=== PATIENT | male | born 1990 | race Caucasian/White ===

== ENCOUNTER 2021-06-25 10:05 | Outpatient (CLI) | payer OTHER, SELFPAY ==
--- NOTE | 2021-06-25 10:10 | EST_ITS ---
Patient Info Name: Oscar Hope Age: 30 years : 1990 Gender: Male Ht: 75 in Wt: 340 lbs BSA: 2.92 m2 Exam Date: 06/25/2021 10:21 AM Exam Location: [facility] Stress Patient Status: Outpatient Admit Date: 06/25/2021 Staff Ordering Physician: Cailin Juarez MD Attending Provider: Cailin Juarez MD Exercise Technologist: Dagmar Ricrado RD Exercise Physician: Willis Ortiz DO Exam Type: CA stress test treadmill Study Info Indications Z02.1 - ENCOUNTER FOR PRE-EMPLOYMENT EXAMINATION A treadmill exercise stress test was performed. Summary 1. 1. Negative Arnold exercise stress test for ischemic ST changes by ECG criteria. 2. 2. Reduced functional capacity, achieving 8 METs of workload, due in part to hypertensive response to exercise. 3. 3. Baseline hypertension with hypertensive response to exercise. 4. 4. Appropriate HR response to exercise. 5. 5. Appropriate HR recovery at 1 minute post exercise. 6. 6. No imaging with stress testing. 7. 7. Patient informed of the above results. Protocol: Arnold Stress ECG Details Stage: REST Duration (min): 6 min : 12 sec Speed (mph): 0.0 Grade (%): 0 HR (bpm): 76 SBP (mmHg): 157 DBP (mmHg): 89 METS: --- Stage: REST Duration (min): 10 min : 2 sec Speed (mph): 0.0 Grade (%): 0 HR (bpm): --- SBP (mmHg): 157 DBP (mmHg): 89 METS: --- Stage: STAGE 1 Duration (min): 1 min : 0 sec Speed (mph): 1.7 Grade (%): 10 HR (bpm): 118 SBP (mmHg): 157 DBP (mmHg): 89 METS: --- Stage: STAGE 1 Duration (min): 2 min : 0 sec Speed (mph): 1.7 Grade (%): 10 HR (bpm): 126 SBP (mmHg): 157 DBP (mmHg): 89 METS: --- Stage: STAGE 1 Duration (min): 3 min : 0 sec Speed (mph): 1.7 Grade (%): 10 HR (bpm): 135 SBP (mmHg): 236 DBP (mmHg): 56 METS: --- Stage: STAGE 2 Duration (min): 1 min : 0 sec Speed (mph): 2.5 Grade (%): 12 HR (bpm): 144 SBP (mmHg): 236 DBP (mmHg): 56 METS: --- Stage: STAGE 2 Duration (min): 2 min : 0 sec Speed (mph): 2.5 Grade (%): 12 HR (bpm): 152 SBP (mmHg): 241 DBP (mmHg): 55 METS: --- Stage: STAGE 2 Duration (min): 3 min : 0 sec Speed (mph): 2.5 Grade (%): 12 HR (bpm): 160 SBP (mmHg): 235 DBP (mmHg): 62 METS: --- Stage: STAGE 3 Duration (min): 0 min : 50 sec Speed (mph): 3.4 Grade (%): 14 HR (bpm): --- SBP (mmHg): 252 DBP (mmHg): 85 METS: --- Stage: RECOVERY Duration (min): 0 min : 10 sec Speed (mph): 1.5 Grade (%): 0 HR (bpm): 143 SBP (mmHg): 252 DBP (mmHg): 85 METS: --- Stage: RECOVERY Duration (min): 1 min : 9 sec Speed (mph): 0.0 Grade (%): 0 HR (bpm): 147 SBP (mmHg): 252 DBP (mmHg): 85 METS: --- Stage: RECOVERY Duration (min): 2 min : 9 sec Speed (mph): 0.0 Grade (%): 0 HR (bpm): 124 SBP (mmH
== END 2021-06-25 10:06 | disposition home or self-care (01) ==
LOC: ANHCARD 10:06
PROVIDERS: PCP Family Medicine; Visit Provider Family Medicine
DX: E66.9 Obesity, unspecified (principal); I10 Essential (primary) hypertension; Z68.41 Body mass index [BMI] 40.0-44.9, adult; Z02.1 Encounter for pre-employment examination
CPT/HCPCS: 93017

== ENCOUNTER 2022-09-30 09:59 | Outpatient (CLI) | payer OTHER, SELFPAY ==
[2022-09-30 10:26] LABS: Hematocrit 44.7 % (42.0-52.0); Hemoglobin 14.2 g/dL (14.0-18.0); Mean Corpuscular HGB Conc 31.8 g/dl (32-36); Mean Corpuscular Hemoglobin 26.9 pg (26-34); Mean Corpuscular Volume 84.7 fl (80-100); Mean Platelet Volume 10.7 fl (7.4-10.4); Platelet Count Result 231 k/mm3 (150-375); Red Blood Count 5.28 M/mm3 (4.6-6.20); Red Cell Distribution Width 17.9 % (11.5-14.5); White Blood Count 13.9 K/mm3 (4.5-10.0)
[2022-09-30 10:39] LABS: Alanine Aminotransferase 484 U/L (6-50); Albumin Level 3.6 g/dL (3.5-5.1); Alkaline Phosphatase 729 U/L (38-126); Anion Gap 9 mmol/L (8-16); Aspartate Amino Transferase 625 U/L (17-59); Bilirubin,Total 6.9 mg/dL (0.2-1.3); Blood Urea Nitrogen 13 mg/dL (9-20); Calcium 8.8 mg/dL (8.4-10.2); Carbon Dioxide 26 mmol/L (22-30); Chloride 99 mmol/L (98-107); Estimated Glomerular Filt Rate > 60; Glucose 103 mg/dL (65-110); Potassium 5.3 mmol/L (3.4-5.0); Sodium 134 mmol/L (137-145)
[2022-09-30 10:44] LABS: Atypical Lymphocytes Present; Band Neutrophils Percent 4 % (0-6); Eosinophils Absolute Manual 0.13 K/mm3 (0.02-0.5); Eosinophils Percent Manual 1 % (0-4); Lymphocytes Absolute Manual 7.36 K/mm3 (1.1-4.5); Metamyelocytes Percent 1 %; Monocytes Absolute Manual 3.33 K/mm3 (0.1-0.90); Monocytes Percent Manual 24 % (3-9); Neutrophils Absolute Manual 2.78 K/mm3 (1.3-6.7); Neutrophils Percent Manual 16 % (46-73); Platelet Estimate Adequate (Adequate); Promyelocytes Percent 1 %; Schistocytes None Seen (NORMAL); Total Cells Counted 100
[2022-09-30 10:45] LABS: Anisocytosis 1+ (NORMAL)
== END 2022-09-30 10:00 | disposition home or self-care (01) ==
LOC: ANHLAB 10:01
PROVIDERS: PCP Family Medicine; Visit Provider Nurse Practitioner
DX: B27.90 Infectious mononucleosis, unspecified without complication (principal); R17 Unspecified jaundice
CPT/HCPCS: 36415; 80053; 85025

== ENCOUNTER 2022-09-30 11:49 | Inpatient (IN) | payer OTHER, SELFPAY ==
[2022-09-30] VITALS (7 sets, daily range): BP systolic 115–172; BP diastolic 71–99; PULSE 110–135; RESP 20–27; TEMP 35.8–36.7; O2SAT 96–98; BMI 44.9
--- NOTE | ~2022-09-30 | CT_ITS ---
EXAMINATION: CT abdomen pelvis w con DATE: 09/30/2022 14:59 INDICATION: Hyperbilirubinemia. TECHNIQUE: Computed tomography (CT) of the abdomen and pelvis was performed with 100 cc Omnipaque 350 intravenous contrast. The dose-length product was 1728.62 mGy-cm. Automated exposure control and ite rative reconstruction technique were employed. COMPARISON: None. FINDINGS: Lung bases are unremarkable. Heart size normal. No significant pleural or pericardial effus ion. Small fat-containing umbilical hernia. Nonobstructive bowel gas pattern. No free air or free flu id. Gallbladder is present. There is splenomegaly. Fatty infiltration of the liver with hepatomegaly. The pancreas, adrenal glands and kidneys are unremarkable. No abnormal pelvic masses or fluid collec tions. No acute osseous abnormality. IMPRESSION: 1. Hepatosplenomegaly. 2: Hepatic steatosis. Reviewed, dictated and finalized at location [facility]
--- NOTE | 2022-09-30 13:46 | ECG_ITS ---
Measurements Intervals [place] Rate: 133 P: 44 [place]: 148 QRS: 8 QRSD: 98 T: 30 QT: 288 QTc: 430 Interpretive Statements SINUS TACHYCARDIA OTHERWISE NORMAL ECG NO PREVIOUS ECG AVAILABLE FOR COMPARISON Electronically Signed On 10-01-2022 13:34:01 GLUE SPRAYER by Ady Blood M.D.
[2022-09-30 13:59] LABS: Hematocrit 45.8 % (42.0-52.0); Hemoglobin 14.3 g/dL (14.0-18.0); Mean Corpuscular HGB Conc 31.2 g/dl (32-36); Mean Corpuscular Volume 86.4 fl (80-100); Mean Platelet Volume 10.6 fl (7.4-10.4); Platelet Count Result 233 k/mm3 (150-375); Red Cell Distribution Width 17.9 % (11.5-14.5); White Blood Count 14.1 K/mm3 (4.5-10.0)
[2022-09-30 14:17] LABS: Alanine Aminotransferase 472 U/L (6-50); Albumin Level 3.6 g/dL (3.5-5.1); Alkaline Phosphatase 716 U/L (38-126); Anion Gap 9 mmol/L (8-16); Aspartate Amino Transferase 601 U/L (17-59); Bilirubin,Total 6.5 mg/dL (0.2-1.3); Blood Urea Nitrogen 15 mg/dL (9-20); Calcium 8.6 mg/dL (8.4-10.2); Carbon Dioxide 26 mmol/L (22-30); Chloride 101 mmol/L (98-107); Estimated CRCL calculation 130 ml/min; Estimated Glomerular Filt Rate > 60; Glucose 123 mg/dL (65-110); Lipase 228 U/L (23-300); Potassium 4.7 mmol/L (3.4-5.0); Sodium 136 mmol/L (137-145)
[2022-09-30 14:19] LABS: Band Neutrophils Percent 3 % (0-6); Eosinophils Absolute Manual 0.28 K/mm3 (0.02-0.5); Eosinophils Percent Manual 2 % (0-4); Lymphocytes Absolute Manual 3.24 K/mm3 (1.1-4.5); Monocytes Absolute Manual 1.83 K/mm3 (0.1-0.90); Monocytes Percent Manual 13 % (3-9); Neutrophils Absolute Manual 8.74 K/mm3 (1.3-6.7); Neutrophils Percent Manual 59 % (46-73); Platelet Estimate Adequate (Adequate); Total Cells Counted 100
[2022-09-30 14:20] LABS: Anisocytosis 1+ (NORMAL); Poikilocytosis 1+ (NORMAL); Schistocytes None Seen (NORMAL)
[2022-09-30 14:53] LABS: Add Urine Microscopic? YES; Appearance Urine Slightly Cloudy (Clear); Bilirubin Urine 3+ (Negative); Blood Urine Negative (Negative); Color Urine Orange (Yellow); Glucose Urine UA Negative (Negative); Ketones Urine Trace mg/dL (Negative); Leukocyte Esterase Ur Negative LEU/UL (Negative); Nitrate Urine Negative (Negative); Protein Urine 1+ mg/dL (Negative); Specific Grav Ur 1.025 (1.001-1.035); pH Urine 5.5 (5.0-9.0)
[2022-09-30] MEDS: SODIUM CHLORIDE 0.9% IV 1,000 ML 999 ML IV CONT (15:01)
[2022-09-30 15:03] LABS: Mucus Urine Few /lpf; RBC Urine 0-2 /hpf (0-2); Squamous Epithelial Cell Urine Rare /hpf (Few)
--- NOTE | 2022-09-30 15:34 | ED.GENADULT ---
HPI - General Adult General Chief complaint: Recheck/Abnormal Lab/Rx Stated complaint: sent by pcp for fluids Time Seen by Provider: 09/30/22 14:16 History of Present Illness HPI narrative: Patient is a 31-year-old male who presents ER with abnormal lab work. Patient began having a fever 2 weeks ago. He thought was a GI illness. He ended up seeing a practitioner at an urgent care who prescribed him a Z-Chalino. He took 3 days but was not feeling any better. He is having no nausea or vomiting or diarrhea. Patient went to his PCPs office today and was diagnosed with mononucleosis. He has significantly elevated transaminases and was transferred to the ER for further evaluation. Related Data Allergies Allergy/AdvReac Type Severity Reaction Status Date / Time No Known Allergies Allergy Verified 09/30/22 08:56 Review of Systems Review of Systems: All systems reviewed & are unremarkable except as noted in HPI and below Constitutional: Constitutional: Reports chills, Reports fatigue and Reports fever(s) ENT: Denies nasal congestion and Denies sore throat Cardiovascular: Cardiovascular: Denies chest pain, Denies rapid heart rate and Denies radiating jaw, neck or arm pain Respiratory: Respiratory: Denies cough and Denies dyspnea Gastrointestinal: Gastrointestinal: Denies abdominal pain, Denies diarrhea, Denies nausea and Denies vomiting PMF Past Medical History Medical History Other specified congenital malformations of skin Family History Family History Mother Family history of gastrointestinal disorder Other Hypertension Social History Social History (Updated 09/30/22 @ 18:47 by Chelsy Ruiz PA-C) Social History: Surrogate medical decision maker: Katherin Hope, mother. Code status: Full code. Smoking status: Never smoker Alcohol intake: never Substance use type: does not use Lack of Transportation: No Lack of Food: Never True Current Housing: I Have Housing Concerned About Future Housing: No Difficulty Paying Gas/Electric Bills: No Difficulty Paying for Meds: No Currently Unemployed: No Education: Decline to Answer Difficulty w/ Childcare or Family Care: No Additional living arrangements comments: Lives alone in [place]. Has 2 dogs, Occ[place] Cordero and a black lab. 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 Spiritual care concerns: No Exam Narrative: GENERAL: Ill-appearing, morbidly obese, and in no acute distress. HEAD: Normocephalic, atraumatic. EYES: PERRL and EOMI. scleral icterus noted. ENT: Mucous membranes moist. CHEST: Clear to auscultation. No respiratory distress. HEART: Tachycardic regular. Normal peripheral pulses. ABDOMEN: Soft, nontender, nondistended. EXTREMITIES: Normal range of motion. No edema. SKIN: Warm, dry, jaundice, no rash. NEURO: No focal deficits. Alert and oriented x3. PSYCH: Normal mood and affect. Course Course Emergency Course: Patient resting comfortably. Informed of results hydrated. Admit to the hospital service for further evaluation of his hepatitis. GI will be consulted. Vital Signs Vital signs: Vital Signs Temperature 98.1 F 09/30/22 13:43 Pulse Rate 130 H 09/30/22 13:43 Respiratory Rate 09/30/22 13:43 Blood Pressure 138/97 H 09/30/22 13:43 Pulse Oximetry 97 09/30/22 13:43 Oxygen Delivery Room Air 09/30/22 13:43 Temperature 97.7 F 09/30/22 18:01 Pulse Rate 122 H 09/30/22 18:01 Respiratory Rate 09/30/22 18:01 Blood Pressure 172/99 H 09/30/22 18:01 Pulse Oximetry 98 09/30/22 18:01 Oxygen Delivery Room Air 09/30/22 13:43 Medical Decision Making Vital Signs Vital Signs: Vital Signs Temperature 98.1 F 09/30/22 13:43 Pulse Rate 130 H 09/30/22 13:43 Respiratory Rate 09/30/22 13:43 Blood Pressure 138/97 H 09/30/22 13:43
[2022-09-30] MEDS: LACTATED RINGERS 1,000 ML 125 ML IV CONT (16:34)
[2022-09-30 16:48] LABS: Influenza A QL RT-PCR Negative (Negative); Influenza B QL RT-PCR Negative (Negative); SARS-CoV-2 RNA PCR Negative
--- NOTE | 2022-09-30 18:30 | PM.IMHP ---
H&P: HPI History of Present Illness Date/Time: 09/30/22 18:30 Chief Complaint: Fever and elevated LFTs. Narrative: This is a pleasant 31-year-old male with hypertension and GERD who presented to the emergency department at the instruction of his primary care provider for further evaluation of fever and elevated LFTs. Patient provides the following history. He has not felt well for a couple of weeks with generalized fatigue, lethargy, and intermittent fever. He was taking Tylenol as needed for his symptoms and he seemed to improve for a period of time however last Thursday he once again started to feel worse, developing a temperature up to 103?. He had a virtual visit and was prescribed a Z-Chalino as he reported having a mild, nonproductive cough. The antibiotic did not help whatsoever. He was seen at a local urgent care on Thursday where he tells me they did not do much except talked to him about his blood pressure running high. This morning he awoke with a rash on his arms and chest and luckily he was able to get in to see his doctor. Several lab tests were done and he came back positive for mononucleosis and he was instructed to go to the ER as his LFTs were quite elevated. He lives alone and denies sick contacts and recent travel. He is surprised that he would of contracted mononucleosis as he is very diligent about washing his hands or using hand neonatologist since the beginning of . Appetite has been okay and he denies nausea, vomiting, and diarrhea. He had a low-grade fever on arrival to the emergency department. Heart rate was 140 on arrival but has not improved with IV fluid hydration. Labs were significant for a WBC of 14.1, sodium 136, total bilirubin 6.5, AST 61, ALT 472, alkaline phosphatase 716, lipase 228. Acetaminophen level was undetectable. Hepatitis panel is negative. A CT of the abdomen pelvis showed hepatic steatosis and hepatosplenomegaly. He is being admitted in this setting for further treatment, evaluation, and GI consultation. Review of Systems Review of Systems: 12 systems were reviewed. Weight has remained stable. No headache or neck ache. He has perhaps some mild sore throat though he thinks that is related to his GERD and this is not necessarily new symptom for him. He denies chest pain shortness a breath. No sensations of racing heart at this time. No syncope or near syncope. Appetite has been okay. Urine has been a bit darker. Stool is light brown. No acholic stools. He has not noticed any significant swollen lymph nodes. Except as documented, all other systems were reviewed and are negative. [facility] Past Medical History Medical History (Updated 09/30/22 @ 21:17 by Chelsy Ruiz PA-C) Gastroesophageal reflux disease Hypertension Surgical History Surgical History (Updated 09/30/22 @ 21:16 by Chelsy Ruiz PA-C) No history of previous surgery Family History Family History Mother Family history of gastrointestinal disorder Other Hypertension Social History Social History Social History: Surrogate medical decision maker: Katherin Hope, mother. Code status: Full code. Smoking status: Never smoker Alcohol intake: never Substance use type: does not use Lack of Transportation: No Lack of Food: Never True Current Housing: I Have Housing Concerned About Future Housing: No Difficulty Paying Gas/Electric Bills: No Difficulty Paying for Meds: No Currently Unemployed: No Education: Decline to Answer Difficulty w/ Childcare or Family Care: No Additional living arrangements comments: Lives alone in [place]. Has 2 dogs, Lao Cordero and a black lab. 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 Spiritual care concerns: No Meds Home Medications and Allergies Home Medications Medication Instructions Recorded Confirmed Type
--- NOTE | 2022-09-30 18:42 | ADMGEN ---
This patient, Terrance Hope, was admitted to 3 Med Surg Room 321-02 at 1735. Patient/family oriented to hospital policies and general routines including ID bracelet, bed and alarms, visiting hours, pain management, procedures, bathroom and other care routines, personal items, smoking policy, room service/diet, and visiting hours. Information on how to activate the Rapid Response Team has been discussed. Patient/Family are encouraged to report perceived risks to care and to ask questions if they do not understand what they are told or what they should do.
[2022-09-30 19:58] LABS: Acetaminophen < 10 ug/mL (10-30)
[2022-09-30 20:03] LABS: INR 1.1; Prothrombin Time 13.9 Seconds (11.1-14.7)
[2022-09-30 20:04] LABS: Partial Thromboplastin Time 32.3 SECONDS (22.3-36.8)
[2022-09-30 20:37] LABS: Hepatitis B Surface Antigen Negative (Negative)
[2022-09-30 20:42] LABS: HAV RESULT Negative (Negative); Hepatitis B Core IgM Result Negative (Negative)
[2022-09-30 20:54] LABS: Hepatitis C Virus Antibody Negative (Negative)
[2022-09-30] MEDS: diphenhydrAMINE HCl CAP 25 MG CAPSULE PO (22:14)
[2022-10-01] VITALS (7 sets, daily range): BP systolic 136–154; BP diastolic 78–93; PULSE 112–118; RESP 18–22; TEMP 35.9–37.2; O2SAT 94–97
[2022-10-01] MEDS: LACTATED RINGERS 1,000 ML 125 ML IV CONT ×2 (00:55→17:47)
[2022-10-01 07:04] LABS: Basophils Percent Auto 0.5 % (0.2-1.2); Eosinophils Absolute Auto 0.1 K/mm3 (0-0.3); Eosinophils Percent Auto 0.9 % (0-4.4); Hematocrit 40.9 % (42.0-52.0); Hemoglobin 12.7 g/dL (14.0-18.0); Immature Granulocyte Absolute 0.12 K/mm3 (0.00-0.031); Immature Granulocyte Percent A 1.4 % (0-0.5); Lymphocytes Absolute Auto 6.15 K/mm3 (0.9-3.2); Lymphocytes Percent Auto 72.4 % (18.3-44.2); Mean Corpuscular HGB Conc 31.1 g/dl (32-36); Mean Corpuscular Hemoglobin 26.7 pg (26-34); Mean Corpuscular Volume 85.9 fl (80-100); Mean Platelet Volume 11.2 fl (7.4-10.4); Monocytes Absolute Auto 0.5 K/mm3 (0.1-0.6); Monocytes Percent Auto 5.5 % (2.6-8.5); Neutrophils Absolute Auto 1.6 K/mm3 (1.3-6.7); Neutrophils Percent Auto 19.3 % (45.5-73.1); Platelet Count Result 196 k/mm3 (150-375); Red Blood Count 4.76 M/mm3 (4.6-6.20); Red Cell Distribution Width 17.7 % (11.5-14.5); White Blood Count 8.5 K/mm3 (4.5-10.0)
[2022-10-01 07:13] LABS: Alanine Aminotransferase 366 U/L (6-50); Alkaline Phosphatase 573 U/L (38-126); Anion Gap 5 mmol/L (8-16); Aspartate Amino Transferase 466 U/L (17-59); Bilirubin,Total 5.2 mg/dL (0.2-1.3); Blood Urea Nitrogen 15 mg/dL (9-20); Calcium 7.8 mg/dL (8.4-10.2); Carbon Dioxide 25 mmol/L (22-30); Chloride 104 mmol/L (98-107); Estimated CRCL calculation 151 ml/min; Estimated Glomerular Filt Rate > 60; Glucose 101 mg/dL (65-110); Magnesium 2.2 mg/dL (1.6-2.3); Potassium 4.4 mmol/L (3.4-5.0); Sodium 134 mmol/L (137-145)
[2022-10-01] MEDS: PANTOPRAZOLE SOD SESQUIHYDRATE 20 MG TAB PO (08:38)
[2022-10-01] MEDS: lisinopriL 20 MG TABLET PO (08:38)
--- NOTE | 2022-10-01 09:48 | PM.IMPN ---
Progress Note: A&P Assessment and Plan (1) Mononucleosis: Code(s): B27.90 - Infectious mononucleosis, unspecified without complication Status: Acute Assessment and Plan: Diagnosed by his PCP on 09/30/22. He does endorse GI symptoms and fever for approximately [address] scan does show hepatomegaly and splenomegaly. Continue supportive care. (2) Systemic inflammatory response syndrome: Code(s): R65.10 - Systemic inflammatory response syndrome (SIRS) of non-infectious origin without acute organ dysfunction Status: Acute Assessment and Plan: Secondary to viral infection. Continue supportive care. (3) Transaminitis: Code(s): R74.01 - Elevation of levels of liver transaminase levels Status: Acute Assessment and Plan: Significantly elevated on admission. He does endorse prior diagnosis of fatty liver disease. AST/ALT 47/96 in June 2021. He denies alcohol intake so likely MORROW. On admission- Tbili 6.9, AST 625, ALT 484, Alk Phos 729. Hepatitis panel negative. He endorses taking 2- 500 mg tablets acetaminophen (and once or twice taking 3 tablets) every 4 hours and approximately 6 tablets daily for the past 2 weeks for fevers. Last dose Thursday09/29/22 in the evening. Acetaminophen level <10 on admission. ?acute liver injury secondary to heavy acetaminophen use. GI consulted and appreciate recommendations. (4) Hepatosplenomegaly: Code(s): R16.2 - Hepatomegaly with splenomegaly, not elsewhere classified Status: Acute Assessment and Plan: Secondary to EBV versus chronic disease. (5) Hypertension: Code(s): I10 - Essential (primary) hypertension Status: Chronic Assessment and Plan: Monitor vitals. BP values reviewed. Continue lisinopril. (6) Gastroesophageal reflux disease: Code(s): K21.9 - Gastro-esophageal reflux disease without esophagitis Status: Chronic Assessment and Plan: Continue protonix daily. (7) Acute urticaria: Code(s): L50.8 - Other urticaria Status: Acute Assessment and Plan: pruritic, papular rash to upper extremities, chest and trunk. Likely secondary to mononucleosis +/- azithromycin use with EBV acute illness. Continue PRN benadryl. Time Spent With Patient Time: 40 minutes time spent reviewing nursing and specialist documentation, labs, vitals, and patient assessment.? Subjective Date/time seen: 10/01/22 09:48 Interval history: Patient is a 31-year-old male with hypertension, GERD and fatty liver disease. He presented to the ED for evaluation of lethargy and generalized fatigue. He was diagnosed with mononucleosis at his PCPs office. Prior to this he does report being treated with Azithromycin prescribed by the urgent care for possible GI infection. He was admitted for IV hydration and GI evaluation for jaundice and elevated liver enzymes. He reports some fatigue and feeling hot. He has some sweating, but no chills or rigors. No documented fevers. He denies abdominal pain, N/V/D and his appetite is improved today. He is mildly anxious today. Review of Systems Review of Systems: All systems reviewed & are unremarkable except as noted in HPI and below Exam Narrative: General: Mildly ill appearing male sitting up in bed in no acute distress. HEENT: PERRL, Pupils equal and round. Mild scleral icterus. Conjunctivae are moderately injected. Tacky mucous membranes. Neck: Supple. Respiratory: Lungs are clear to auscultation bilaterally. Cardiovascular: Tachycardic with normal S1-S2. No murmur, gallop or rub. Gastrointestinal: Abdomen is soft, obese, and nontender with positive bowel sounds. Skin: Warm and dry. Fine maculopapular rash on the upper extremities and trunk. Extremities: No cyanosis, clubbing, or edema. Radial and pedal pulses intact. Neurological: Alert and oriented x4. Cranial nerves 2-12 are grossly intact. No gross focal defici
[2022-10-01 10:09] LABS: Anisocytosis 1+ (NORMAL); Platelet Estimate Adequate (Adequate)
[2022-10-01 10:12] LABS: Schistocytes None Seen (NORMAL)
[2022-10-01] MEDS: diphenhydrAMINE HCl CAP 25 MG CAPSULE PO (20:45)
--- NOTE | 2022-10-01 21:58 | PC.NURSE ---
sepesis alert reported to ZINO Adams
[2022-10-02] MEDS: LACTATED RINGERS 1,000 ML 125 ML IV CONT ×2 (02:46→20:41)
[2022-10-02 06:00] VITALS: BP 155/100; PULSE 100; RESP 18; TEMP 36.8; O2SAT 97
[2022-10-02 07:17] LABS: Alanine Aminotransferase 315 U/L (6-50); Alkaline Phosphatase 520 U/L (38-126); Anion Gap 5 mmol/L (8-16); Aspartate Amino Transferase 442 U/L (17-59); Bilirubin,Total 4.8 mg/dL (0.2-1.3); Blood Urea Nitrogen 14 mg/dL (9-20); Calcium 7.8 mg/dL (8.4-10.2); Carbon Dioxide 24 mmol/L (22-30); Chloride 104 mmol/L (98-107); Estimated CRCL calculation 167 ml/min; Estimated Glomerular Filt Rate > 60; Glucose 93 mg/dL (65-110); Potassium 4.4 mmol/L (3.4-5.0); Sodium 133 mmol/L (137-145)
[2022-10-02] MEDS: lisinopriL 20 MG TABLET PO (08:53)
[2022-10-02] MEDS: PANTOPRAZOLE SOD SESQUIHYDRATE 20 MG TAB PO (08:53)
--- NOTE | 2022-10-02 09:15 | PM.IMPN ---
Progress Note: A&P Assessment and Plan (1) Mononucleosis: Code(s): B27.90 - Infectious mononucleosis, unspecified without complication Status: Acute Assessment and Plan: Diagnosed by his PCP on 09/30/22. He does endorse GI symptoms and fever for approximately [address] scan does show hepatomegaly and splenomegaly. Continue supportive care. HIV 1/2 4th gen negative EBV antibodies pending. (2) Systemic inflammatory response syndrome: Code(s): R65.10 - Systemic inflammatory response syndrome (SIRS) of non-infectious origin without acute organ dysfunction Status: Acute Assessment and Plan: Secondary to viral infection. Continue supportive care. (3) Transaminitis: Code(s): R74.01 - Elevation of levels of liver transaminase levels Status: Acute Assessment and Plan: Significantly elevated on admission. He does endorse prior diagnosis of fatty liver disease. AST/ALT 47/96 in June 2021. He denies alcohol intake so likely MORROW. On admission- Tbili 6.9, AST 625, ALT 484, Alk Phos 729. LFTs slowly improving. Hepatitis panel negative. He endorses taking 2- 500 mg tablets acetaminophen (and once or twice taking 3 tablets) every 4 hours and approximately 6 tablets daily for the past 2 weeks for fevers. Last dose Thursday09/29/22 in the evening. Acetaminophen level <10 on admission. ?acute liver injury secondary to heavy acetaminophen use. GI consulted and appreciate recommendations. Supportive care. (4) Hepatosplenomegaly: Code(s): R16.2 - Hepatomegaly with splenomegaly, not elsewhere classified Status: Acute Assessment and Plan: Secondary to EBV versus chronic disease. Educated on avoiding strenuous activities and exercises x3-4 weeks. (5) Hypertension: Qualifiers: Hypertension type: primary hypertension Qualified Code(s): I10 - Essential (primary) hypertension Code(s): I10 - Essential (primary) hypertension Status: Chronic Assessment and Plan: Monitor vitals. BP values reviewed. Continue lisinopril. (6) Gastroesophageal reflux disease: Qualifiers: Esophagitis presence: without esophagitis Qualified Code(s): K21.9 - Gastro-esophageal reflux disease without esophagitis Code(s): K21.9 - Gastro-esophageal reflux disease without esophagitis Status: Chronic Assessment and Plan: Continue protonix daily. (7) Acute urticaria: Code(s): L50.8 - Other urticaria Status: Acute Assessment and Plan: pruritic, papular rash to upper extremities, chest and trunk. Likely secondary to mononucleosis +/- azithromycin use with EBV acute illness. Continue PRN benadryl. Plan CODE STATUS: FULL CODE Disposition: from home. Subjective Date/time seen: 10/02/22 09:15 Interval history: Patient is a 31-year-old male with hypertension, GERD and fatty liver disease. He presented to the ED for evaluation of lethargy and generalized fatigue. He was diagnosed with mononucleosis at his PCPs office. Prior to this he does report being treated with Azithromycin prescribed by the urgent care for possible GI infection. He was admitted for IV hydration and GI evaluation for jaundice and elevated liver enzymes. He feels a little better today. His appetite is fair. No abdominal pain, N/V/D or constipation. He thinks the yellowing of his eyes is improving. Tmax was 99F overnight. He denies chills or rigors. Review of Systems Review of Systems: All systems reviewed & are unremarkable except as noted in HPI and below Exam Narrative: General: Nontoxic appearing adult male sitting at the side of the bed in no acute distress. HEENT: Normocephalic. Pupils equal and round. Mild scleral icterus. Moist mucous membranes. Neck: Supple. No JVD. Respiratory: Lungs are clear to auscultation bilaterally. RR regular and unlabored. Cardiovascular: normal S1-S2 regular rate and rhythm. No mur
[2022-10-02 10:25] LABS: HIV 1/2 Ab P24 Ag Result Negative (Negative)
--- NOTE | 2022-10-02 12:59 | PCCCNOTE ---
On 10/02/22, the student, [Shauna Matthews], provided care and completed [facility] documentation on this patient. I have reviewed the student's documentation and agree with the findings.
--- NOTE | 2022-10-02 16:05 | PC.NURSE ---
Pt has had no complaints of pain or itching today. Pt resting in bed. Pt is A&O4 and participated and contributed in plan of care. Will continue to monitor pt.
--- NOTE | 2022-10-02 17:33 | WPDGICN ---
Assessment and Plan Assessment and plan (1) Mononucleosis: Code(s): B27.90 - Infectious mononucleosis, unspecified without complication Status: Acute Assessment and Plan: findings, abnormal labs and imaging can be explained by mono medical support he is already feeling better (2) Hepatosplenomegaly: Code(s): R16.2 - Hepatomegaly with splenomegaly, not elsewhere classified Status: Acute Assessment and Plan: from mono (3) Transaminitis: Code(s): R74.01 - Elevation of levels of liver transaminase levels Status: Acute Assessment and Plan: he was taking about 3g tylenol daily initially at home because of fever (normally more than 4g cause liver injury)- he is not using anymore, tylenol level on admission normal most likely hepatitis is from mononucleosis already trending down (4) Systemic inflammatory response syndrome: Code(s): R65.10 - Systemic inflammatory response syndrome (SIRS) of non-infectious origin without acute organ dysfunction Status: Acute Assessment and Plan: on admission better (5) Rash: Code(s): R21 - Rash and other nonspecific skin eruption Status: Acute Assessment and Plan: probably related to mono (6) Gastroesophageal reflux disease: Qualifiers: Esophagitis presence: without esophagitis Qualified Code(s): K21.9 - Gastro-esophageal reflux disease without esophagitis Code(s): K21.9 - Gastro-esophageal reflux disease without esophagitis Status: Chronic (7) Obesity: Qualifiers: Obesity type: unspecified obesity type Obesity classification: adult class 3 (BMI >= 40) Serious obesity comorbidity presence: with serious comorbidity Body mass index: BMI 40.0-44.9 Qualified Code(s): E66.01 - Morbid (severe) obesity due to excess calories; Z68.41 - Body mass index [BMI] 40.0-44.9, adult Code(s): E66.9 - Obesity, unspecified Status: Acute GI Consult Note Consult date/time: 10/02/22 17:33 Reason for consult: mononucleosis, hepatitis HPI: Terrance Hope is a 31 year old male with history of htn, obesity and gerd. He came here after having almost 2 weeks of persistent fever up to 103F, generalized fatigue, lethargy. He was taking Tylenol as needed probably 3 g a day that was helping for the fever, he was given empirically z-pack but then because persistent fever finally got more test and mononucleosis was positive, covid negative, hepatitis negative. Other blood work showed WBC of 14.1, sodium 136, total bilirubin 6.5, AST 61, ALT 472, alkaline phosphatase 716, lipase 228. Acetaminophen level was undetectable.? A CT of the abdomen pelvis showed hepatic steatosis and hepatosplenomegaly.?Also developed rash in her body. He now has more appetite and already feeling better. Denies alcohol use or similar problem. Review of Systems Constitutional: Constitutional: Reports fatigue and Reports lethargy Eyes: Eyes: Denies blurry vision ENT: Reports Normal hearing present Cardiovascular: Cardiovascular: Denies chest pain Respiratory: Respiratory: Denies cough Gastrointestinal: Gastrointestinal: Denies melena Genitourinary: Comments: dark urine Musculoskeletal: Musculoskeletal: Reports myalgias Integumentary/Breasts: Skin/Breast: Reports rash Neurologic: Denies Abnormal speech present Psychiatric: Psychiatric: Denies anxiety [facility] Past Medical History Medical History (Updated 10/02/22 @ 17:38 by Taco Herbert MD) Gastroesophageal reflux disease Hypertension Rash Surgical History Surgical History (Updated 09/30/22 @ 21:16 by Chelsy Ruiz PA-C) No history of previous surgery Family History Family History Mother Family history of gastrointestinal disorder Other Hypertension Social History Social History So
[2022-10-02 19:59] VITALS: O2SAT 97
[2022-10-02] MEDS: diphenhydrAMINE HCl CAP 25 MG CAPSULE PO (20:12)
[2022-10-02 23:22] VITALS: BP 151/90; PULSE 109; RESP 18; TEMP 37.3; O2SAT 98
[2022-10-03] VITALS (7 sets, daily range): BP systolic 151–173; BP diastolic 89–100; PULSE 98–109; RESP 18–22; TEMP 35.8–38.7; O2SAT 96–100
[2022-10-03 06:26] LABS: Hematocrit 38.5 % (42.0-52.0); Hemoglobin 12.1 g/dL (14.0-18.0); Mean Corpuscular HGB Conc 31.4 g/dl (32-36); Mean Corpuscular Volume 85.9 fl (80-100); Mean Platelet Volume 11.4 fl (7.4-10.4); Platelet Count Result 181 k/mm3 (150-375); Red Blood Count 4.48 M/mm3 (4.6-6.20); Red Cell Distribution Width 17.7 % (11.5-14.5); White Blood Count 8.7 K/mm3 (4.5-10.0)
[2022-10-03 06:37] LABS: Partial Thromboplastin Time 31.2 SECONDS (22.3-36.8); Prothrombin Time 12.5 Seconds (11.1-14.7)
[2022-10-03 06:42] LABS: Alanine Aminotransferase 356 U/L (6-50); Albumin Level 3.2 g/dL (3.5-5.1); Alkaline Phosphatase 560 U/L (38-126); Anion Gap 2 mmol/L (8-16); Aspartate Amino Transferase 506 U/L (17-59); Bilirubin,Total 4.2 mg/dL (0.2-1.3); Blood Urea Nitrogen 12 mg/dL (9-20); Carbon Dioxide 28 mmol/L (22-30); Chloride 100 mmol/L (98-107); Estimated CRCL calculation 169 ml/min; Estimated Glomerular Filt Rate > 60; Glucose 92 mg/dL (65-110); Potassium 4.7 mmol/L (3.4-5.0); Sodium 130 mmol/L (137-145)
[2022-10-03] MEDS: PANTOPRAZOLE SOD SESQUIHYDRATE 20 MG TAB PO (09:09)
[2022-10-03] MEDS: lisinopriL 20 MG TABLET PO ×2 (09:09→16:45)
--- NOTE | 2022-10-03 09:33 | PM.IMPN ---
Progress Note: A&P Assessment and Plan (1) Mononucleosis: Code(s): B27.90 - Infectious mononucleosis, unspecified without complication Status: Acute Assessment and Plan: Diagnosed by his PCP on 09/30/22. He does endorse GI symptoms and fever for approximately [address] scan does show hepatomegaly and splenomegaly. Continue supportive care. HIV 1/2 4th gen negative EBV antibodies pending. (2) Systemic inflammatory response syndrome: Code(s): R65.10 - Systemic inflammatory response syndrome (SIRS) of non-infectious origin without acute organ dysfunction Status: Acute Assessment and Plan: Secondary to viral infection. Continue supportive care. (3) Transaminitis: Code(s): R74.01 - Elevation of levels of liver transaminase levels Status: Acute Assessment and Plan: Significantly elevated on admission. He does endorse prior diagnosis of fatty liver disease. AST/ALT 47/96 in June 2021. He denies alcohol intake so likely MORROW. On admission- Tbili 6.9, AST 625, ALT 484, Alk Phos 729. LFTs fluctuating. 10/03/22 tbili 4.2, AST 5.6, ALT 356, Alk Phos 560 Hepatitis panel negative. He endorses taking 2- 500 mg tablets acetaminophen (and once or twice taking 3 tablets) every 4 hours and approximately 6 tablets daily for the past 2 weeks for fevers. Last dose Thursday09/29/22 in the evening. Acetaminophen level <10 on admission. GI consulted and appreciate recommendations- no further intervention and consistent with IM Supportive care. (4) Hepatosplenomegaly: Code(s): R16.2 - Hepatomegaly with splenomegaly, not elsewhere classified Status: Acute Assessment and Plan: Secondary to EBV versus chronic disease. Educated on avoiding strenuous activities and exercises x3-4 weeks. (5) Hypertension: Qualifiers: Hypertension type: primary hypertension Qualified Code(s): I10 - Essential (primary) hypertension Code(s): I10 - Essential (primary) hypertension Status: Chronic Assessment and Plan: Monitor vitals. BP values reviewed and elevated. He reports his lisinopril was increased to 40 mg PO daily by his PCP at his last visit. Increase lisinopril dose. He does endorse a cough but is not bothered by it and changing to an ARB was discussed, however, he did not want to do this at this time. (6) Gastroesophageal reflux disease: Qualifiers: Esophagitis presence: without esophagitis Qualified Code(s): K21.9 - Gastro-esophageal reflux disease without esophagitis Code(s): K21.9 - Gastro-esophageal reflux disease without esophagitis Status: Chronic Assessment and Plan: Continue protonix daily. (7) Acute urticaria: Code(s): L50.8 - Other urticaria Status: Acute Assessment and Plan: pruritic, papular rash to upper extremities, chest and trunk. Likely secondary to mononucleosis +/- azithromycin use with EBV acute illness. Continue PRN benadryl. Plan CODE STATUS: FULL CODE Disposition: from home. discharge when LFTs significantly improved. Subjective Date/time seen: 10/03/22 09:33 Interval history: Patient is a 31-year-old male with hypertension, GERD and fatty liver disease. He presented to the ED for evaluation of lethargy and generalized fatigue. He was diagnosed with mononucleosis at his PCPs office. Prior to this he does report being treated with Azithromycin prescribed by the urgent care for possible GI infection. He was admitted for IV hydration and GI evaluation for jaundice and elevated liver enzymes. He denies abdominal pain, N/V/D or constipation. Stool is brown and formed. His appetite is fair. He has intermittent fatigue. Review of Systems Review of Systems: All systems reviewed & are unremarkable except as noted in HPI and below Exam Narrative: General: Nontoxic appearing adult male sitting at the side of the bed in no acute distress. HEENT: [place]oc
--- NOTE | 2022-10-03 15:51 | WPDGIPROGNO ---
Progress Note: A&P Assessment and Plan (1) Transaminitis: Code(s): R74.01 - Elevation of levels of liver transaminase levels Status: Acute Assessment and Plan: bili is trending down, still elevated transaminases- expect will take some time before back to normal he is feeling better hepatitis and hiv negative probably from mononucleosis will need monitor liver enzymes as outpatient given hepatosplenomegaly also avoid exercise or major activities (2) Mononucleosis: Qualifiers: Infectious mononucleosis etiology: unspecified organism Infectious mononucleosis complication: other complications Qualified Code(s): B27.99 - Infectious mononucleosis, unspecified with other complication Code(s): B27.90 - Infectious mononucleosis, unspecified without complication Status: Acute (3) Systemic inflammatory response syndrome: Code(s): R65.10 - Systemic inflammatory response syndrome (SIRS) of non-infectious origin without acute organ dysfunction Status: Acute Assessment and Plan: resolved (4) Rash: Code(s): R21 - Rash and other nonspecific skin eruption Status: Acute (5) Obesity: Qualifiers: Obesity type: unspecified obesity type Obesity classification: adult class 3 (BMI >= 40) Serious obesity comorbidity presence: with serious comorbidity Body mass index: BMI 40.0-44.9 Qualified Code(s): E66.01 - Morbid (severe) obesity due to excess calories; Z68.41 - Body mass index [BMI] 40.0-44.9, adult Code(s): E66.9 - Obesity, unspecified Status: Acute Subjective Date/time seen: 10/03/22 15:51 Interval history: no changes, no pain, no nausea and he is eating, thinks that rash is improving Review of Systems Review of Systems: All systems reviewed & are unremarkable except as noted in HPI and below Exam Const: General: comfortable Other: obese, rash + HENMT: Face/Nose/Sinus: Normal nares present Eyes: Pupils: Equal, round and reactive pupils present Neck: Neck: supple Resp: Effort & Inspection: normal respiratory effort Cardio: Rhythm: regular rhythm GI: GI Palp: Yes Soft to palpation, No Tenderness to palpation present (GI) and No Guarding due to palpation present (GI) Auscultation: normal bowel sounds Skin: Rashes: rashes noted Neuro: Speech: normal speech Motor exam (neuro): 5/5 motor strength present throughout Extrem: General: normal to inspection Psych: Affect: normal affect Objective Data Vital Signs Vital Signs: Vital Signs - 24 hr 10/02/22 19:59 10/02/22 23:22 10/03/22 06:37 Temperature 99.2 F 96.4 F L Pulse Rate 109 H 98 Respiratory Rate 18 22 H Blood Pressure 151/90 H 154/100 H Pulse Oximetry 97 98 96 Oxygen Delivery Room Air 10/03/22 08:00 10/03/22 15:15 Temperature 97.7 F Pulse Rate 98 Respiratory Rate 18 Blood Pressure 151/91 H Pulse Oximetry 100 Oxygen Delivery Room Air Intake/Output Intake/Output: Intake & Output 09/30/22 10/01/22 10/02/22 10/03/22 23:59 23:59 23:59 23:59 Intake Total 1125 6283 4750 1230 Balance 1125 6283 4750 1230 Meds/Results Medications: Active Medications Generic Name Dose Route Start Last Admin Trade Name Freq PRN Reason Stop Dose Admin Diphenhydramine HCl 25 mg 09/30/22 21:05 10/02/22 20:12 Diphenhydramine Hcl Cap 25 Mg Capsule PO 25 mg Q6H PRN Administration Itching Hydrocortisone 1 applic 09/30/22 21:30 Hydrocortisone 2.5% Cream 30 Gm Tube RECTAL DAILY PRN hemorrhoids Ibuprofen 400 mg 09/30/22 15:44 Ibuprofen 400 Mg Tablet PO Q6H PRN Mild Pain (1-3) or Fever Lisinopril 40 mg 10/04/22 09:00 Lisinopril 20 Mg Tablet PO DAILY NOVA Morphine Sulfate 4 mg 09/30/22 15:44 Morphine Sulfate (*Crx) 4 Mg/Ml Inj IV PUSH Q2H PRN Pain Rated 7-10 Ondansetron HCl 4 mg 09/30/22 15:44 Ondansetron Inj 4 Mg/2 Ml Vial IV PUSH Q4H PRN Nausea Pant
--- NOTE | 2022-10-03 20:50 | PC.NURSE ---
reported elevated temp 101.6 to Joseph FAY, reported gave ibuprofen 400 mg PO prn dose, and bp elevated 173/89, lisinopril increase to 40 mg PO daily on day shift, inquired about IV push hydralazine. Joseph FAY to review pt chart and place order accordingly.
[2022-10-03] MEDS: IBUPROFEN 400 MG TABLET PO (20:55)
[2022-10-04 06:00] VITALS: BP 148/88; PULSE 94; RESP 20; TEMP 36.1; O2SAT 99
[2022-10-04 08:13] LABS: Alanine Aminotransferase 369 U/L (6-50); Albumin Level 3.1 g/dL (3.5-5.1); Alkaline Phosphatase 515 U/L (38-126); Anion Gap 4 mmol/L (8-16); Aspartate Amino Transferase 533 U/L (17-59); Bilirubin,Total 3.8 mg/dL (0.2-1.3); Blood Urea Nitrogen 11 mg/dL (9-20); Carbon Dioxide 28 mmol/L (22-30); Chloride 104 mmol/L (98-107); Estimated CRCL calculation 189 ml/min; Estimated Glomerular Filt Rate > 60; Glucose 91 mg/dL (65-110); Potassium 4.5 mmol/L (3.4-5.0); Sodium 136 mmol/L (137-145)
--- NOTE | 2022-10-04 08:37 | PM.DS ---
DS: Admitting Diagnosis Discharge Date 10/04/2022 Admitting Diagnosis Infectious mononucleosis Systemic inflammatory response syndrome Transaminitis Hepatosplenomegaly Essential (primary) hypertension Gastroesophageal reflux disease DS: Discharge Diagnosis Discharge Diagnosis (1) Mononucleosis: Code(s): B27.90 - Infectious mononucleosis, unspecified without complication Status: Acute Assessment and Plan: Diagnosed by his PCP on 09/30/22. He endorsed GI symptoms and fever for approximately [address] scan does show hepatomegaly and splenomegaly. Supportive care given. HIV 08/11 4th gen negative (2) Systemic inflammatory response syndrome: Code(s): R65.10 - Systemic inflammatory response syndrome (SIRS) of non-infectious origin without acute organ dysfunction Status: Acute Assessment and Plan: Secondary to viral infection. Continue supportive care. (3) Transaminitis: Code(s): R74.01 - Elevation of levels of liver transaminase levels Status: Acute Assessment and Plan: Significantly elevated on admission. He endorsed prior diagnosis of fatty liver disease. AST/ALT 47/96 in June 2021. He denied alcohol intake so likely MORROW. On admission- Tbili 6.9, AST 625, ALT 484, Alk Phos 729. LFTs fluctuating. 10/03/22 tbili 4.2, AST 5.6, ALT 356, Alk Phos 560 Hepatitis panel negative. He endorsed taking 2- 500 mg tablets acetaminophen (and once or twice taking 3 tablets) every 4 hours and approximately 6 tablets daily for the past 2 weeks for fevers. Last dose Thursday09/29/22 in the evening. Acetaminophen level <10 on admission. GI consulted and appreciate recommendations- no further intervention and consistent with IM Repeat LFTs in 1 week after discharge. Jaundice improved. (4) Hepatosplenomegaly: Code(s): R16.2 - Hepatomegaly with splenomegaly, not elsewhere classified Status: Acute Assessment and Plan: Secondary to EBV versus chronic disease. Educated on avoiding strenuous activities and exercises x3-4 weeks. (5) Hypertension: Qualifiers: Hypertension type: primary hypertension Qualified Code(s): I10 - Essential (primary) hypertension Code(s): I10 - Essential (primary) hypertension Status: Chronic Assessment and Plan: Monitor vitals. BP values reviewed and elevated. He reported his lisinopril was increased to 40 mg PO daily by his PCP at his last visit. Increased lisinopril dose. He c/o cough but is not bothered by it and changing to an ARB was discussed, however, he did not want to do this at this time. (6) Gastroesophageal reflux disease: Qualifiers: Esophagitis presence: without esophagitis Qualified Code(s): K21.9 - Gastro-esophageal reflux disease without esophagitis Code(s): K21.9 - Gastro-esophageal reflux disease without esophagitis Status: Chronic Assessment and Plan: Continue protonix daily. (7) Acute urticaria: Code(s): L50.8 - Other urticaria Status: Acute Assessment and Plan: pruritic, papular rash to upper extremities, chest and trunk. Likely secondary to mononucleosis +/- azithromycin use with EBV acute illness. Continue PRN benadryl. DS: Summary Hospital Course Reason for hospitalization: Fever and elevated LFTs Hospital Course: Patient is a 31-year-old male with hypertension and GERD who presented to the emergency department at the instruction of his primary care provider for further evaluation of fever and elevated LFTs. He reported feeling unwell for a couple of weeks with generalized fatigue, lethargy, and intermittent fever. He was taking Tylenol as needed for his symptoms and he seemed to improve for a period of time however last Thursday he once again started to feel worse, developed a temperature up to 103?. He had a virtual visit and was prescribed a Z-Chalino as he reported having a mild, nonproductive cough. The antibiotic di
[2022-10-04] MEDS: lisinopriL 20 MG TABLET 40 MG PO (08:38)
[2022-10-04] MEDS: PANTOPRAZOLE SOD SESQUIHYDRATE 20 MG TAB PO (08:38)
[2022-10-04 14:00] VITALS: BP 164/84; PULSE 90; RESP 20; TEMP 36.2; O2SAT 99
--- NOTE | 2022-10-04 14:00 | WPDGIPROGNO ---
Progress Note: A&P Assessment and Plan (1) Transaminitis: Code(s): R74.01 - Elevation of levels of liver transaminase levels Status: Acute Assessment and Plan: bili is keep trending down, urine is getting fbi special agent elevated transaminases- expect will take some time before back to normal he is feeling better and going home probably from mononucleosis will need monitor liver enzymes as outpatient given hepatosplenomegaly also avoid exercise or major activities (2) Mononucleosis: Qualifiers: Infectious mononucleosis etiology: unspecified organism Infectious mononucleosis complication: other complications Qualified Code(s): B27.99 - Infectious mononucleosis, unspecified with other complication Code(s): B27.90 - Infectious mononucleosis, unspecified without complication Status: Acute (3) Systemic inflammatory response syndrome: Code(s): R65.10 - Systemic inflammatory response syndrome (SIRS) of non-infectious origin without acute organ dysfunction Status: Acute Assessment and Plan: resolved (4) Rash: Code(s): R21 - Rash and other nonspecific skin eruption Status: Acute Assessment and Plan: slowly improving (5) Obesity: Qualifiers: Obesity type: unspecified obesity type Obesity classification: adult class 3 (BMI >= 40) Serious obesity comorbidity presence: with serious comorbidity Body mass index: BMI 40.0-44.9 Qualified Code(s): E66.01 - Morbid (severe) obesity due to excess calories; Z68.41 - Body mass index [BMI] 40.0-44.9, adult Code(s): E66.9 - Obesity, unspecified Status: Acute Subjective Date/time seen: 10/04/22 14:00 Interval history: doing well, less fatigue and good appetite, rash slowly improving, he is going home Review of Systems Review of Systems: All systems reviewed & are unremarkable except as noted in HPI and below Exam Const: General: comfortable Other: obese, rash + HENMT: Face/Nose/Sinus: Normal nares present Eyes: Pupils: Equal, round and reactive pupils present Neck: Neck: supple Resp: Effort & Inspection: normal respiratory effort Cardio: Rhythm: regular rhythm GI: GI Palp: Yes Soft to palpation, No Tenderness to palpation present (GI) and No Guarding due to palpation present (GI) Auscultation: normal bowel sounds Skin: Rashes: rashes noted Neuro: Speech: normal speech Motor exam (neuro): 5/5 motor strength present throughout Extrem: General: normal to inspection Psych: Affect: normal affect Objective Data Vital Signs Vital Signs: Vital Signs - 24 hr 10/03/22 20:00 10/03/22 20:52 10/03/22 20:39 Temperature 101.6 F H 101.6 F H Pulse Rate 98 109 H 109 H Respiratory Rate 18 20 20 Blood Pressure 173/89 H 173/89 H Pulse Oximetry 100 98 98 Oxygen Delivery Room Air Room Air 10/03/22 20:55 10/03/22 21:55 10/04/22 06:00 Temperature 101.2 F H 98.9 F 97.0 F L Pulse Rate 94 Respiratory Rate 20 Blood Pressure 148/88 H Pulse Oximetry 99 Oxygen Delivery 10/04/22 08:00 10/04/22 14:00 Temperature 97.2 F L Pulse Rate 90 Respiratory Rate 20 Blood Pressure 164/84 H Pulse Oximetry 99 Oxygen Delivery Room Air Intake/Output Intake/Output: Intake & Output 10/01/22 10/02/22 10/03/22 10/04/22 23:59 23:59 23:59 23:59 Intake Total 6283 4750 2674 855 Balance 6283 4750 2674 855 Meds/Results Radiology Results: ITS Impressions Abdomen/Pelvis CT 09/30/22 15:02 IMPRESSION: 1. Hepatosplenomegaly. 2: Hepatic steatosis. Labs Labs: Laboratory Results - last 24 hr 10/04/22 07:15 Sodium 136 L Potassium 4.5 Chloride 104 Carbon Dioxide 28 Anion Gap 4 L BUN 11 Creatinine 0.80 Estim Creat Clear Calc 189 Estimated GFR > 60 Glucose 91 Calcium 8.0 L Total Bilirubin 3.8 H AST 533 H ALT 369 H Alkaline Phosphatase 515 H Total Protein 7.0 Albumin 3.1 L Amg Follow-up Billing Hospital Follow-u
== END 2022-10-04 16:08 | disposition home or self-care (01) | DRG 866 ==
LOC: ANHED 14:41 → ANH3MEDSUR 17:17
PROVIDERS: Physician Assistant; Admitting Provider Family Medicine; Emergency Provider Emergency Medicine; PCP Family Medicine; Visit Provider Nurse Practitioner Family
DX: B27.90 Infectious mononucleosis, unspecified without complication (principal); R16.2 Hepatomegaly with splenomegaly, not elsewhere classified; R74.01 Elevation of levels of liver transaminase levels; K21.9 Gastro-esophageal reflux disease without esophagitis; K76.0 Fatty (change of) liver, not elsewhere classified; I10 Essential (primary) hypertension; L50.9 Urticaria, unspecified; Z20.822 Contact with and (suspected) exposure to COVID-19
CPT/HCPCS: 36415; 74177; 80053; 80074; 80307; 81001; 83690; 83735; 85025; 85027; 85610; 85730; 86703; 87040; 87086; 87636; 93005; 96360; 96361; 99285; A9270; G0378; G0432; J7030; J7120; Q9967

== ENCOUNTER 2022-10-10 12:38 | Outpatient (CLI) | payer OTHER, SELFPAY ==
[2022-10-10 18:35] LABS: Basophils Percent Auto 0.5 % (0.2-1.2); Eosinophils Absolute Auto 0.2 K/mm3 (0-0.3); Eosinophils Percent Auto 2.7 % (0-4.4); Hematocrit 46.1 % (42.0-52.0); Hemoglobin 13.9 g/dL (14.0-18.0); Immature Granulocyte Absolute 0.06 K/mm3 (0.00-0.031); Immature Granulocyte Percent A 0.7 % (0-0.5); Lymphocytes Absolute Auto 6.28 K/mm3 (0.9-3.2); Lymphocytes Percent Auto 71.5 % (18.3-44.2); Mean Corpuscular HGB Conc 30.2 g/dl (32-36); Mean Corpuscular Hemoglobin 26.6 pg (26-34); Mean Corpuscular Volume 88.3 fl (80-100); Mean Platelet Volume 11.4 fl (7.4-10.4); Monocytes Absolute Auto 0.5 K/mm3 (0.1-0.6); Monocytes Percent Auto 5.1 % (2.6-8.5); Neutrophils Absolute Auto 1.7 K/mm3 (1.3-6.7); Neutrophils Percent Auto 19.5 % (45.5-73.1); Platelet Count Result 264 k/mm3 (150-375); Red Blood Count 5.22 M/mm3 (4.6-6.20); Red Cell Distribution Width 16.7 % (11.5-14.5); White Blood Count 8.8 K/mm3 (4.5-10.0)
[2022-10-10 18:53] LABS: Alanine Aminotransferase 530 U/L (6-50); Albumin Level 4.1 g/dL (3.5-5.1); Alkaline Phosphatase 401 U/L (38-126); Anion Gap 6 mmol/L (8-16); Aspartate Amino Transferase 456 U/L (17-59); Bilirubin,Total 2.1 mg/dL (0.2-1.3); Blood Urea Nitrogen 17 mg/dL (9-20); Calcium 9.1 mg/dL (8.4-10.2); Carbon Dioxide 29 mmol/L (22-30); Chloride 103 mmol/L (98-107); Estimated Glomerular Filt Rate > 60; Glucose 99 mg/dL (65-110); Potassium 5.1 mmol/L (3.4-5.0); Sodium 138 mmol/L (137-145)
[2022-10-10 19:04] LABS: Atypical Lymphocytes Present; Platelet Estimate Adequate (Adequate); Schistocytes None Seen (NORMAL)
== END 2022-10-10 12:39 | disposition home or self-care (01) ==
LOC: ANHGOSHLAB 12:39
PROVIDERS: PCP Family Medicine; Visit Provider Family Medicine
DX: R74.01 Elevation of levels of liver transaminase levels (principal)
CPT/HCPCS: 36415; 80053; 85025

== ENCOUNTER 2022-10-31 11:15 | Outpatient (CLI) | payer OTHER, SELFPAY ==
[2022-10-31 19:16] LABS: Alanine Aminotransferase 236 U/L (6-50); Albumin Level 4.3 g/dL (3.5-5.1); Alkaline Phosphatase 125 U/L (38-126); Anion Gap 9 mmol/L (8-16); Aspartate Amino Transferase 117 U/L (17-59); Blood Urea Nitrogen 12 mg/dL (9-20); Calcium 9.1 mg/dL (8.4-10.2); Carbon Dioxide 25 mmol/L (22-30); Chloride 105 mmol/L (98-107); Estimated Glomerular Filt Rate > 60; Glucose 87 mg/dL (65-110); Potassium 4.1 mmol/L (3.4-5.0); Sodium 139 mmol/L (137-145)
== END 2022-10-31 11:16 | disposition home or self-care (01) ==
LOC: ANHGOSHLAB 11:17
PROVIDERS: PCP Internal Medicine; Visit Provider Nurse Practitioner
DX: R74.01 Elevation of levels of liver transaminase levels (principal)
CPT/HCPCS: 36415; 80053

== ENCOUNTER 2023-05-19 10:03 | Outpatient (CLI) | payer OTHER, SELFPAY ==
[2023-05-19 18:44] LABS: Alanine Aminotransferase 94 U/L (6-50); Albumin Level 4.3 g/dL (3.5-5.1); Alkaline Phosphatase 77 U/L (38-126); Anion Gap 8 mmol/L (8-16); Aspartate Amino Transferase 50 U/L (17-59); Bilirubin,Total 0.6 mg/dL (0.2-1.3); Blood Urea Nitrogen 13 mg/dL (9-20); Calcium 9.2 mg/dL (8.4-10.2); Carbon Dioxide 29 mmol/L (22-30); Chloride 101 mmol/L (98-107); Estimated Glomerular Filt Rate > 60; Glucose 92 mg/dL (65-110); Potassium 4.4 mmol/L (3.4-5.0); Sodium 138 mmol/L (137-145)
[2023-05-19 19:49] LABS: Basophils Percent Auto 0.4 % (0.2-1.2); Eosinophils Absolute Auto 0.1 K/mm3 (0-0.3); Hematocrit 46.5 % (42.0-52.0); Hemoglobin 15.5 g/dL (14.0-18.0); Immature Granulocyte Absolute 0.05 K/mm3 (0.00-0.031); Immature Granulocyte Percent A 0.6 % (0-0.5); Lymphocytes Absolute Auto 2.44 K/mm3 (0.9-3.2); Mean Corpuscular HGB Conc 33.3 g/dl (32-36); Mean Corpuscular Hemoglobin 27.9 pg (26-34); Mean Corpuscular Volume 83.8 fl (80-100); Mean Platelet Volume 11.2 fl (7.4-10.4); Monocytes Absolute Auto 0.5 K/mm3 (0.1-0.6); Monocytes Percent Auto 5.2 % (2.6-8.5); Neutrophils Absolute Auto 5.9 K/mm3 (1.3-6.7); Neutrophils Percent Auto 65.8 % (45.5-73.1); Platelet Count Result 234 k/mm3 (150-375); Red Blood Count 5.55 M/mm3 (4.6-6.20); Red Cell Distribution Width 13.3 % (11.5-14.5)
[2023-05-20 16:41] LABS: Cholesterol 130 mg/dL (0-200); HDL Direct 34 mg/dL; Triglycerides 64 mg/dL (<150)
[2023-05-20 16:51] LABS: LDL Cholesterol Direct 79 mg/dL
== END 2023-05-19 10:04 | disposition home or self-care (01) ==
LOC: ANHGOSHLAB 10:05
PROVIDERS: PCP Internal Medicine; Visit Provider Nurse Practitioner
DX: Z13.29 Encounter for screening for other suspected endocrine disorder (principal)
CPT/HCPCS: 36415; 80053; 80061; 85025